=== PATIENT | male | born 1985 | race Caucasian/White ===

== ENCOUNTER 2017-06-11 02:38 | Emergency (ER) | payer OTHER ==
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
[2017-06-11 05:04] LABS: ACETAMINOPHEN 0 ug/mL (10-30)
== END 2017-06-11 08:50 ==
LOC: JD.ED 02:38
DX: F32.9 Major depressive disorder, single episode, unspecified (principal); R45.851 Suicidal ideations; F10.120 Alcohol abuse with intoxication, uncomplicated; F17.200 Nicotine dependence, unspecified, uncomplicated
CPT/HCPCS: 36415; 80053; 80306; 84443; 85025; 93005; 99285; G0480; 93010